=== PATIENT | male | born 1975 | race Hispanic/Latino ===

== ENCOUNTER 2025-04-10 15:43 | Emergency (ER) | payer SELFPAY ==
[~2025-04-10 15:43] MED LIST: Iopamidol 300 61% 100 ML VIAL FS ONE
[2025-04-10] MEDS ORDERED: Ketorolac Tromethamine 30 MG (1 mL) VIAL ONE (16:44)
[2025-04-10] MEDS ORDERED: Dexamethasone 10 MG/ML VIAL ONE (16:44)
[2025-04-10 16:50] LABS: #Basophils 0.03 10x3/uL (0.0-0.2); #Eosinophils 0.04 10x3/uL (0.0-0.5); #Monocytes 0.71 10x3/uL (0.0-1.1); #Neutrophils 7.06 10x3/uL (1.5-8.4); %Basophils 0.4 % (0.0-2.0); %Eosinophils 0.5 % (0.0-6.0); %Lymphocytes 6.3 % (18.0-47.0); %Monocytes 8.5 % (0.0-10.0); %Neutrophils 84.1 % (40.0-75.0); Hematocrit 39.5 % (38.8-50.0); Hemoglobin 12.8 g/dL (13.5-17.5); Mean Corpuscular Hemoglobin 25.1 pg (27.0-33.0); Mean Corpuscular Volume 77.5 fL (81.2-95.1); Platelet Count 430 10x3/uL (150-450); Red Blood Cell (RBC) Count 5.10 10x6/uL (4.32-5.72); White Blood Cell (WBC) Count 8.39 10x3/uL (3.5-10.5)
[2025-04-10 16:51] LABS: ALT (SGPT) 10 U/L (Less than 45); AST (SGOT) 34 U/L (11-34); Albumin 4.1 g/dL (3.1-4.5); Alkaline Phosphatase 92 U/L (40-110); Anion Gap 20 mmol/L (10-20); BUN (Urea Nitrogen) 26 mg/dL (8.4-25.7); Bilirubin, Total 0.5 mg/dL (0.3-1.2); Calc. Creatinine Clearance 0 mL/min (70-130); Calcium 9.6 mg/dL (7.8-10.44); Carbon Dioxide 23 mmol/L (22-29); Chloride 105 mmol/L (98-107); Globulin 3.3 g/dL (2.4-3.5); Glucose 102 mg/dL (70-105); Potassium 4.1 mmol/L (3.5-5.1); Sodium 144 mmol/L (136-145)
== END 2025-04-10 19:00 | disposition home or self-care (01) ==
LOC: CSHERS 15:43
DX: R59.1 Generalized enlarged lymph nodes (principal); I10 Essential (primary) hypertension
CPT/HCPCS: 70360; 71045; 71260; 80053; 85025; 96374; 96375; J1100; J1885; Q9967

== ENCOUNTER 2025-04-21 17:33 | Emergency (ER) | payer SELFPAY ==
[2025-04-21 18:19] LABS: #Basophils 0.04 10x3/uL (0.0-0.2); #Eosinophils 0.03 10x3/uL (0.0-0.5); #Monocytes 0.88 10x3/uL (0.0-1.1); #Neutrophils 7.12 10x3/uL (1.5-8.4); %Basophils 0.5 % (0.0-2.0); %Eosinophils 0.3 % (0.0-6.0); %Lymphocytes 7.7 % (18.0-47.0); %Monocytes 10.0 % (0.0-10.0); %Neutrophils 80.9 % (40.0-75.0); Hematocrit 39.0 % (38.8-50.0); Hemoglobin 13.0 g/dL (13.5-17.5); Mean Corpuscular Hemoglobin 25.8 pg (27.0-33.0); Mean Corpuscular Volume 77.5 fL (81.2-95.1); Platelet Count 477 10x3/uL (150-450); Red Blood Cell (RBC) Count 5.03 10x6/uL (4.32-5.72); White Blood Cell (WBC) Count 8.80 10x3/uL (3.5-10.5)
[2025-04-21 18:29] LABS: ALT (SGPT) 12 U/L (Less than 45); AST (SGOT) 47 U/L (11-34); Albumin 4.3 g/dL (3.1-4.5); Alkaline Phosphatase 87 U/L (40-110); Anion Gap 19 mmol/L (10-20); BUN (Urea Nitrogen) 29 mg/dL (8.4-25.7); Bilirubin, Total 0.8 mg/dL (0.3-1.2); Calc. Creatinine Clearance 0 mL/min (70-130); Calcium 10.3 mg/dL (7.8-10.44); Carbon Dioxide 25 mmol/L (22-29); Chloride 100 mmol/L (98-107); Globulin 3.0 g/dL (2.4-3.5); Glucose 87 mg/dL (70-105); Potassium 4.0 mmol/L (3.5-5.1); Sodium 140 mmol/L (136-145)
[2025-04-21 18:36] LABS: Troponin I 0.010 ng/mL (< 0.028)
[2025-04-21] MEDS ORDERED: Cefepime 2 GM VIAL ONE (18:42)
[2025-04-21] MEDS ORDERED: Ondansetron PF 4 MG/2 ML Vial ONE (19:04)
[2025-04-21] MEDS ORDERED: Ketorolac Tromethamine 30 MG (1 mL) VIAL ONE (20:49)
== END 2025-04-21 23:42 | disposition short-term general hospital (02) ==
LOC: CSHERS 17:33
DX: R22.1 Localized swelling, mass and lump, neck (principal); I10 Essential (primary) hypertension
CPT/HCPCS: 36415; 70450; 70491; 71275; 80053; 83605; 83880; 84484; 85025; 87040; 93005; 96374; 96375; J0692; J1885; J2270; J2405